=== PATIENT | male | born 1955 | race Caucasian/White ===

== ENCOUNTER 2016-09-18 09:21 | Day surgery (SDC) | payer MEDICAID ==
[~2016-09-18 09:21] MED LIST: RINGERS SOLUTION,LACTATED 1,000 ML IV PRN
--- OUTSIDE RECORDS SUMMARY | 2016-09-18 09:26 | XMS REPORT | Continuity of Care Document ---
:1955 Author Organization [facility] ([facility]) Address [place] [address] Phone [phone] Care Team Providers Name Role Phone Carrington Angulo Primary Care Provider [phone] Source Comments This disclosure is being made pursuant to the Care Everywhere program, applicable federal and state laws, and may not contain all informaitonavailable regarding this patient.[facility] ([facility]) Active Allergies and Adverse Reactions No Known Allergies Current Medications Prescription Sig. Disp. Refills Start Date End Date Status omeprazole 20 mg Take 1 Cap by 30 Cap 11 01/31/2014 Active extended release mouth daily. capsule Indications: PREVENTION OF STRESS ULCER dexamethasone 2 mg Please take 2 50 Tab 1 01/31/2014 Active tablet tablets 4 times a day for one more day, then take 1 tablets 4 times a day for two days, then 1 tablets 2 times a day for two daysThen 1 tablet once a day for two days. Indications: cerebral edema traZODone 50 mg Take 1 tablet (50 30 tablet 11 08/16/2015 Active tablet mg total) by mouth at bedtime. 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 He plans to keep a calendar and cross off when meds taken. We also discussed option of pill box. Partial epilepsy with impairment of consciousness 04/22/2014 Last Assessment & Plan: 12/14/2015 Localization-related (focal) (partial) epilepsy and epileptic syndromes with complex partial seizures, without mention of intractable epilepsy Patient with localization related seizures likely related to mesial right frontal meningioma -he has gliosis on MRI at resection site He has not driven in 7 years - OWI. He has not had alcohol in 3.5 years. He was tapered off zonisamide about 2 months ago (around October 16) and denies any seizures Advised that his seizures are related to the meningioma scar and will be at increased risk for seizures estimated about 30-40 %. Reviewed data on marijuana for seizure control re lack of data and cost Plan 1.DOT form filled out - will have scanned into EPIC 2. Follow up 6 months If you have questions please call us: Department of Neurology Epilepsy Program(8:00 a.m. to 5:00 p.m. Sunday-Sunday) at [phone] After 5:00 p.m., weekends or holidays, call [phone] and ask for the Neurologist expansion envelope maker hand. You may also use the 24 hour Toll-free number at . 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 Spells 01/29/2014 Tobacco use disorder 04/03/2008 Backache, unspecified 04/02/2008 Other malaise and fatigue 04/02/2008 Disorders of bursae and tendons in shoulder region, unspecified 03/24/2003 Cervicalgia 11/05/2001 Most Recent Encounters Date Type Specialty Providers Description 07/20/2016 Office Visit Neurology Lou Bertrand MD Dx: Partial epilepsy with impairment of consciousness (Primary Dx) 06/27/2016 Office Visit Neurology Danielle Law Chief Comp: Patient Reported Reason For Visit Social History Tobacco Use Types Packs/Day Years Used Date Current Every Day Smoker Cigarettes 1.5 40 Smokeless Tobacco: Never Used Tobacco Cessation:Ready to Quit: No; Counseling Given: Yes Comments:less than 1.5 pack Alcohol Use Drinks/Week oz/Week Comments No Last Filed Vital Signs Vital Sign Reading Time Taken Blood Pressure 125/75 07/20/2016 1:03 PM [employer] Pulse 64 07/20/2016 1:03 PM [employer] Temperature 36.4 C (97.5 F) 09/14/2015 11:18 AM CDT Respiratory Rate 16 01/31/2014 12:00 PM CDT Height 1.829 m (6' 0.01") 09/14/2015 11:18 AM CDT Weight 82.5 kg (181 lb 14.1 oz) 07/20/2016 1:03 PM [employer] Body Mass Index 24.66 07/20/2016 1:03 PM [employer] Oxygen Saturation 94% 01/31/2014 12:00 PM CDT Plan of Care Health Maintenance Due Date Last Done Comments HCV Screening 1955 Hepatitis B Vaccine (1 of 3 - Primary Series) 1955 Tdap Vaccine 1968 MMR Vaccine 12/17/1975 Td Vaccine 12/17/1975 Pneumococcal Vaccine (1 of 1 - PPSV23) 1976 Colonoscopy 2007 Prostate Cancer Screening 04/02/2009 04/02/2008 Lipid Disorder Screening 04/02/2013 04/02/2008 Influenza Vaccine: Seasonal (#1) 01/17/2016 Results from Last 3 Months Not on file
[2016-09-18] MEDS ORDERED: RINGERS SOLUTION,LACTATED 1,000 ML IV ONE (10:25)
[2016-09-18] MEDS ORDERED: RINGERS SOLUTION,LACTATED 1,000 ML IV PRN (11:20)
[2016-09-18 12:23] VITALS: BP 109/66
--- NOTE | 2016-09-18 18:23 | OR ---
Operative Report - Dictated Report Narrative: OPERATIVE REPORT DATE OF OPERATION: 09/18/2016 PREOPERATIVE DIAGNOSIS: No prior dedicated colon studies POSTOPERATIVE DIAGNOSIS: Multiple small rectal polyps (pathology pending). Capacious colon otherwise normal exam to the cecum OPERATION: Colonoscopy with hot biopsy forceps polypectomy in the rectum SURGEON: Dawna Norwood MD ANESTHESIA: MAX Mann CRNA INDICATIONS FOR PROCEDURE: The patient is a 60-year-old male referred for an initial colon screening by Dr. Angulo. He has had no previous dedicated colon studies. There is no family history of colon cancer. The patient is currently asymptomatic. FINDINGS: Multiple hyperplastic appearing rectal polyps (pathology pending). Very capacious redundant colon otherwise normal exam to the cecum NARRATIVE OF PROCEDURE: The patient was identified in the holding area, and prior to the administration of anesthetic, a multidisciplinary timeout was observed. With the patient in the left lateral position and after the administration of intravenous sedation, the perineum was inspected. There was no evidence of pilonidal disease or skin breakdown. The external appearance of the anus was normal. Sphincter tone was good. The flexible fiberoptic colonoscope was inserted into the rectum which was insufflated with air. There were multiple small hyperplastic appearing polyps. One sales representative facility services polyp was biopsied and thoroughly destroyed with electrocautery. The site was seen to be complete and hemostatic. The rectal mucosa and submucosal vascular pattern otherwise appeared normal, the prep was seen to be complete. The scope was advanced through the sigmoid colon, up the descending colon, and around the splenic flexure where the triangular haustral architecture of the transverse colon was seen. The scope was advanced across the transverse colon, around the hepatic flexure to the cecum, where the confluence of tenia and the ileocecal valve were identified. The mucosa at this level appeared normal. The scope was then slowly withdrawn in a circular fashion so that all aspects of colonic mucosa were inspected. The colon was very capacious in character and redundant in course. The haustral architecture appeared well preserved throughout with no evidence of external compression. The mucosa and submucosal vascular pattern appeared normal, specifically there was no gross evidence to suggest colitis or inflammatory bowel disease and no AV malformations were seen. No diverticulosis was demonstrated. No polyps proximal to the rectum were encountered. The scope was gradually withdrawn to the level of the rectum. As much insufflated air as possible was removed. The scope was withdrawn from the patient and the procedure terminated. The patient tolerated the anesthetic and procedure well without complication and was transferred back to the ambulatory surgery area awake and in stable condition. The patient remained stable throughout a period of postoperative observation. He denied abdominal discomfort, was able to tolerate by mouth intake, and was up without assistance. I shared the operative findings with the patient and he was given copies of the photographs which appear in the medical record. He was discharged home with instructions not to engage in hazardous activity today, but may resume normal activity tomorrow, and advance diet as tolerated. He is to continue those medications as listed in the history and physical exam. I made arrangements to contact him with the biopsy reports and will make additional recommendations for treatment and follow-up based upon those results. Reviewed and electronically signed
== END 2016-09-18 09:22 | disposition home or self-care (01) ==
LOC: AMB 09:21
PROVIDERS: ATTEND Surgery
PROC: 0DBP8ZX Excision of Rectum, Via Natural or Artificial Opening Endoscopic, Diagnostic (ICD-10-PCS; principal; 2016-09-18 10:45)
DX: Z12.11 Encounter for screening for malignant neoplasm of colon (principal); K62.1 Rectal polyp; Z68.23 Body mass index [BMI] 23.0-23.9, adult